=== PATIENT | female | born 1955 | race Two or more races ===

== ENCOUNTER 2019-09-05 11:00 | Outpatient (CLI) | payer OTHER ==
[2019-09-05] MEDS ORDERED: KETOROLAC TROMETHAMINE INJ 30 MG/ML VIAL IM/IV ONE (11:01)
[2019-09-05] MEDS ORDERED: LIDOCAINE HCL/PF 1% 30 ML VIAL IJ ONE (11:01)
== END 2019-09-05 23:59 | disposition home or self-care (01) ==
LOC: MSC 11:00
PROVIDERS: ATTEND Anesthesiology
DX: M54.2 Cervicalgia (principal); M46.96 Unspecified inflammatory spondylopathy, lumbar region; M51.26 Other intervertebral disc displacement, lumbar region; M47.27 Other spondylosis with radiculopathy, lumbosacral region; M96.1 Postlaminectomy syndrome, not elsewhere classified; M62.830 Muscle spasm of back; G89.4 Chronic pain syndrome; M25.9 Joint disorder, unspecified; M79.2 Neuralgia and neuritis, unspecified
CPT/HCPCS: 20553; J1885; J3490

== ENCOUNTER → 2019-10-03 | Outpatient (CLI) | payer OTHER | END | disposition home or self-care (01) | LOC: MSC 12:25 | PROVIDERS: ATTEND Anesthesiology | DX: M46.96 Unspecified inflammatory spondylopathy, lumbar region (principal); M51.26 Other intervertebral disc displacement, lumbar region; M47.27 Other spondylosis with radiculopathy, lumbosacral region; M96.1 Postlaminectomy syndrome, not elsewhere classified; M62.830 Muscle spasm of back; G89.4 Chronic pain syndrome; M25.9 Joint disorder, unspecified; M79.2 Neuralgia and neuritis, unspecified; Z79.891 Long term (current) use of opiate analgesic ==

== ENCOUNTER → 2019-10-31 | Outpatient (CLI) | payer OTHER | END | disposition home or self-care (01) | LOC: MSC 10:00 | PROVIDERS: ATTEND Anesthesiology | DX: M46.96 Unspecified inflammatory spondylopathy, lumbar region (principal); M51.26 Other intervertebral disc displacement, lumbar region; M47.27 Other spondylosis with radiculopathy, lumbosacral region; M96.1 Postlaminectomy syndrome, not elsewhere classified; M62.830 Muscle spasm of back; M25.9 Joint disorder, unspecified; M79.2 Neuralgia and neuritis, unspecified; G89.4 Chronic pain syndrome; Z79.891 Long term (current) use of opiate analgesic; Z79.1 Long term (current) use of non-steroidal anti-inflammatories (NSAID) ==

== ENCOUNTER → 2019-11-28 | Outpatient (CLI) | payer OTHER | END | disposition home or self-care (01) | LOC: MSC 09:45 | PROVIDERS: ATTEND Anesthesiology | DX: M46.96 Unspecified inflammatory spondylopathy, lumbar region (principal); M51.26 Other intervertebral disc displacement, lumbar region; M47.27 Other spondylosis with radiculopathy, lumbosacral region; M96.1 Postlaminectomy syndrome, not elsewhere classified; M62.830 Muscle spasm of back; G89.4 Chronic pain syndrome; M25.9 Joint disorder, unspecified; Z79.891 Long term (current) use of opiate analgesic; Z79.1 Long term (current) use of non-steroidal anti-inflammatories (NSAID) ==

== ENCOUNTER → 2019-12-27 | Outpatient (CLI) | payer OTHER | END | disposition home or self-care (01) | LOC: MSC 14:30 | PROVIDERS: ATTEND Anesthesiology | DX: M46.96 Unspecified inflammatory spondylopathy, lumbar region (principal); M51.26 Other intervertebral disc displacement, lumbar region; M47.27 Other spondylosis with radiculopathy, lumbosacral region; M96.1 Postlaminectomy syndrome, not elsewhere classified; M62.830 Muscle spasm of back; M25.9 Joint disorder, unspecified; G89.4 Chronic pain syndrome; M79.605 Pain in left leg; M79.604 Pain in right leg; M79.2 Neuralgia and neuritis, unspecified; Z79.891 Long term (current) use of opiate analgesic; Z79.899 Other long term (current) drug therapy ==

== ENCOUNTER 2020-01-16 10:00 | Outpatient (CLI) | payer OTHER | END 2020-01-16 23:59 | disposition home or self-care (01) | LOC: MSC 10:00 | PROVIDERS: ATTEND Anesthesiology | DX: M46.96 Unspecified inflammatory spondylopathy, lumbar region (principal); M51.26 Other intervertebral disc displacement, lumbar region; M47.27 Other spondylosis with radiculopathy, lumbosacral region; M62.830 Muscle spasm of back; M96.1 Postlaminectomy syndrome, not elsewhere classified; M54.2 Cervicalgia; G89.4 Chronic pain syndrome; M25.9 Joint disorder, unspecified; M79.2 Neuralgia and neuritis, unspecified; Z79.891 Long term (current) use of opiate analgesic; Z79.1 Long term (current) use of non-steroidal anti-inflammatories (NSAID) ==

== ENCOUNTER 2020-02-20 11:05 | Outpatient (CLI) | payer BC | END 2020-02-20 23:59 | disposition home or self-care (01) | LOC: MSC 11:05 | PROVIDERS: ATTEND Anesthesiology | DX: M46.96 Unspecified inflammatory spondylopathy, lumbar region (principal); M47.27 Other spondylosis with radiculopathy, lumbosacral region; M51.26 Other intervertebral disc displacement, lumbar region; M62.830 Muscle spasm of back; M96.1 Postlaminectomy syndrome, not elsewhere classified; G89.4 Chronic pain syndrome; M54.2 Cervicalgia; M79.605 Pain in left leg; M79.604 Pain in right leg; M25.9 Joint disorder, unspecified; M79.2 Neuralgia and neuritis, unspecified; Z79.891 Long term (current) use of opiate analgesic; Z79.1 Long term (current) use of non-steroidal anti-inflammatories (NSAID) ==

== ENCOUNTER 2020-03-19 10:40 | Outpatient (CLI) | payer BC | END 2020-03-19 23:59 | disposition home or self-care (01) | LOC: MSC 10:40 | PROVIDERS: ATTEND Anesthesiology | DX: M46.96 Unspecified inflammatory spondylopathy, lumbar region (principal); M51.26 Other intervertebral disc displacement, lumbar region; M47.27 Other spondylosis with radiculopathy, lumbosacral region; M96.1 Postlaminectomy syndrome, not elsewhere classified; M62.830 Muscle spasm of back; G89.4 Chronic pain syndrome; M54.2 Cervicalgia; M79.2 Neuralgia and neuritis, unspecified; Z79.891 Long term (current) use of opiate analgesic; Z79.1 Long term (current) use of non-steroidal anti-inflammatories (NSAID) ==

== ENCOUNTER 2020-04-09 10:40 | Outpatient (CLI) | payer BC | END 2020-04-09 23:59 | disposition home or self-care (01) | LOC: MSC 10:40 | PROVIDERS: ATTEND Anesthesiology | DX: M46.96 Unspecified inflammatory spondylopathy, lumbar region (principal); M51.26 Other intervertebral disc displacement, lumbar region; M47.27 Other spondylosis with radiculopathy, lumbosacral region; M96.1 Postlaminectomy syndrome, not elsewhere classified; M62.830 Muscle spasm of back; G89.4 Chronic pain syndrome; M25.9 Joint disorder, unspecified; M79.2 Neuralgia and neuritis, unspecified; Z79.891 Long term (current) use of opiate analgesic; Z79.1 Long term (current) use of non-steroidal anti-inflammatories (NSAID) ==

== ENCOUNTER 2020-05-14 09:40 | Outpatient (CLI) | payer BC | END 2020-05-14 23:59 | disposition home or self-care (01) | LOC: MSC 09:40 | PROVIDERS: ATTEND Anesthesiology | DX: M46.96 Unspecified inflammatory spondylopathy, lumbar region (principal); M51.26 Other intervertebral disc displacement, lumbar region; M47.27 Other spondylosis with radiculopathy, lumbosacral region; M62.830 Muscle spasm of back; M96.1 Postlaminectomy syndrome, not elsewhere classified; M54.2 Cervicalgia; G89.4 Chronic pain syndrome; M25.9 Joint disorder, unspecified; Z79.891 Long term (current) use of opiate analgesic; Z79.1 Long term (current) use of non-steroidal anti-inflammatories (NSAID) ==

== ENCOUNTER → 2022-01-20 | Outpatient (CLI) | payer MEDICARE, BC | END | disposition home or self-care (01) | LOC: MSC 10:00 | PROVIDERS: ATTEND Anesthesiology | DX: G89.4 Chronic pain syndrome (principal); M46.96 Unspecified inflammatory spondylopathy, lumbar region; M51.26 Other intervertebral disc displacement, lumbar region; M47.27 Other spondylosis with radiculopathy, lumbosacral region; M96.1 Postlaminectomy syndrome, not elsewhere classified; M62.830 Muscle spasm of back; M25.9 Joint disorder, unspecified; M79.2 Neuralgia and neuritis, unspecified; M79.605 Pain in left leg; M79.641 Pain in right hand; Z79.891 Long term (current) use of opiate analgesic; Z79.1 Long term (current) use of non-steroidal anti-inflammatories (NSAID); Z79.899 Other long term (current) drug therapy ==

== ENCOUNTER → 2022-03-10 | Outpatient (CLI) | payer MEDICARE, BC | END | disposition home or self-care (01) | LOC: MSC 10:30 | PROVIDERS: ATTEND Anesthesiology | DX: G89.4 Chronic pain syndrome (principal); M46.96 Unspecified inflammatory spondylopathy, lumbar region; M51.26 Other intervertebral disc displacement, lumbar region; M47.27 Other spondylosis with radiculopathy, lumbosacral region; M96.1 Postlaminectomy syndrome, not elsewhere classified; M62.830 Muscle spasm of back; M54.2 Cervicalgia; M25.9 Joint disorder, unspecified; M79.2 Neuralgia and neuritis, unspecified; M79.605 Pain in left leg; M79.641 Pain in right hand; Z76.0 Encounter for issue of repeat prescription; Z79.891 Long term (current) use of opiate analgesic; Z79.1 Long term (current) use of non-steroidal anti-inflammatories (NSAID); Z98.890 Other specified postprocedural states ==

== ENCOUNTER 2022-04-07 10:08 | Outpatient (CLI) | payer MEDICARE, BC | END 2022-04-07 23:59 | disposition home or self-care (01) | LOC: MSC 10:08 | PROVIDERS: ATTEND Anesthesiology | DX: G89.4 Chronic pain syndrome (principal); M46.96 Unspecified inflammatory spondylopathy, lumbar region; M51.26 Other intervertebral disc displacement, lumbar region; M47.27 Other spondylosis with radiculopathy, lumbosacral region; M96.1 Postlaminectomy syndrome, not elsewhere classified; M62.830 Muscle spasm of back; M25.9 Joint disorder, unspecified; M79.2 Neuralgia and neuritis, unspecified; M79.605 Pain in left leg; M79.641 Pain in right hand; Z79.891 Long term (current) use of opiate analgesic; Z79.1 Long term (current) use of non-steroidal anti-inflammatories (NSAID); Z76.0 Encounter for issue of repeat prescription ==

== ENCOUNTER → 2022-04-21 | Outpatient (CLI) | payer MEDICARE, BC | END | disposition home or self-care (01) | LOC: MSC 11:15 | PROVIDERS: ATTEND Anesthesiology | DX: M46.96 Unspecified inflammatory spondylopathy, lumbar region (principal); M51.26 Other intervertebral disc displacement, lumbar region; M47.27 Other spondylosis with radiculopathy, lumbosacral region; M96.1 Postlaminectomy syndrome, not elsewhere classified; M62.830 Muscle spasm of back; G89.4 Chronic pain syndrome; M25.9 Joint disorder, unspecified; M79.2 Neuralgia and neuritis, unspecified; M79.605 Pain in left leg; M79.641 Pain in right hand; Z79.891 Long term (current) use of opiate analgesic; Z79.1 Long term (current) use of non-steroidal anti-inflammatories (NSAID) ==

== ENCOUNTER 2022-06-02 09:55 | Outpatient (CLI) | payer MEDICARE, BC | END 2022-06-02 23:59 | disposition home or self-care (01) | LOC: MSC 09:55 | PROVIDERS: ATTEND Anesthesiology | DX: G89.4 Chronic pain syndrome (principal); M46.96 Unspecified inflammatory spondylopathy, lumbar region; M51.26 Other intervertebral disc displacement, lumbar region; M47.27 Other spondylosis with radiculopathy, lumbosacral region; M96.1 Postlaminectomy syndrome, not elsewhere classified; M62.830 Muscle spasm of back; M54.2 Cervicalgia; M25.9 Joint disorder, unspecified; M79.2 Neuralgia and neuritis, unspecified; M79.605 Pain in left leg; M79.641 Pain in right hand; Z79.891 Long term (current) use of opiate analgesic; Z79.1 Long term (current) use of non-steroidal anti-inflammatories (NSAID) ==

== ENCOUNTER → 2022-06-30 | Outpatient (CLI) | payer MEDICARE, BC | END | disposition home or self-care (01) | LOC: MSC 09:30 | PROVIDERS: ATTEND Anesthesiology | DX: G89.4 Chronic pain syndrome (principal); M46.96 Unspecified inflammatory spondylopathy, lumbar region; M51.26 Other intervertebral disc displacement, lumbar region; M47.27 Other spondylosis with radiculopathy, lumbosacral region; M96.1 Postlaminectomy syndrome, not elsewhere classified; M62.830 Muscle spasm of back; M54.2 Cervicalgia; M79.2 Neuralgia and neuritis, unspecified; M25.9 Joint disorder, unspecified; M25.559 Pain in unspecified hip; M79.605 Pain in left leg; M79.641 Pain in right hand; Z79.891 Long term (current) use of opiate analgesic; Z79.1 Long term (current) use of non-steroidal anti-inflammatories (NSAID) ==

== ENCOUNTER → 2022-07-21 | Outpatient (CLI) | payer MEDICARE | END | disposition home or self-care (01) | LOC: MSC 09:30 | PROVIDERS: ATTEND Anesthesiology | DX: G89.4 Chronic pain syndrome (principal); M46.96 Unspecified inflammatory spondylopathy, lumbar region; M51.26 Other intervertebral disc displacement, lumbar region; M47.27 Other spondylosis with radiculopathy, lumbosacral region; M96.1 Postlaminectomy syndrome, not elsewhere classified; M62.830 Muscle spasm of back; M54.2 Cervicalgia; M79.2 Neuralgia and neuritis, unspecified; M25.9 Joint disorder, unspecified; M79.605 Pain in left leg; M79.641 Pain in right hand; Z76.0 Encounter for issue of repeat prescription; Z79.891 Long term (current) use of opiate analgesic; Z79.1 Long term (current) use of non-steroidal anti-inflammatories (NSAID) ==

== ENCOUNTER 2022-08-18 09:55 | Outpatient (CLI) | payer MEDICARE | END 2022-08-18 23:59 | disposition home or self-care (01) | LOC: MSC 09:55 | PROVIDERS: ATTEND Anesthesiology | DX: G89.4 Chronic pain syndrome (principal); M46.96 Unspecified inflammatory spondylopathy, lumbar region; M51.26 Other intervertebral disc displacement, lumbar region; M47.27 Other spondylosis with radiculopathy, lumbosacral region; M96.1 Postlaminectomy syndrome, not elsewhere classified; M62.830 Muscle spasm of back; M79.2 Neuralgia and neuritis, unspecified; M25.9 Joint disorder, unspecified; M79.605 Pain in left leg; M79.641 Pain in right hand; Z76.0 Encounter for issue of repeat prescription; Z79.891 Long term (current) use of opiate analgesic; Z79.1 Long term (current) use of non-steroidal anti-inflammatories (NSAID); M54.2 Cervicalgia ==

== ENCOUNTER 2022-09-22 10:20 | Outpatient (CLI) | payer MEDICARE | END 2022-09-22 23:59 | disposition home or self-care (01) | LOC: MSC 10:20 | PROVIDERS: ATTEND Anesthesiology | DX: G89.4 Chronic pain syndrome (principal); M47.27 Other spondylosis with radiculopathy, lumbosacral region; M46.96 Unspecified inflammatory spondylopathy, lumbar region; M51.26 Other intervertebral disc displacement, lumbar region; M96.1 Postlaminectomy syndrome, not elsewhere classified; M62.830 Muscle spasm of back; M79.2 Neuralgia and neuritis, unspecified; M25.9 Joint disorder, unspecified; M79.605 Pain in left leg; M79.641 Pain in right hand; Z79.891 Long term (current) use of opiate analgesic; Z79.1 Long term (current) use of non-steroidal anti-inflammatories (NSAID) ==

== ENCOUNTER 2022-10-13 09:45 | Outpatient (CLI) | payer MEDICARE | END 2022-10-13 23:59 | disposition home or self-care (01) | LOC: MSC 09:45 | PROVIDERS: ATTEND Anesthesiology | DX: G89.4 Chronic pain syndrome (principal); M46.96 Unspecified inflammatory spondylopathy, lumbar region; M51.26 Other intervertebral disc displacement, lumbar region; M47.27 Other spondylosis with radiculopathy, lumbosacral region; M43.26 Fusion of spine, lumbar region; M54.2 Cervicalgia; M96.1 Postlaminectomy syndrome, not elsewhere classified; M62.830 Muscle spasm of back; Z98.890 Other specified postprocedural states; M79.2 Neuralgia and neuritis, unspecified; M79.605 Pain in left leg; M79.641 Pain in right hand; Z76.0 Encounter for issue of repeat prescription; Z79.891 Long term (current) use of opiate analgesic ==

== ENCOUNTER 2025-07-16 10:05 | Inpatient (IN) | payer MEDICARE, BC ==
[~2025-07-16] VITALS: Ht 167.6 cm; Wt 72.6 kg
[2025-07-16] MEDS ORDERED: VANCOMYCIN 1 GM VIAL ONE ×4 (10:15→13:37)
[2025-07-16] MEDS ORDERED: CEFAZOLIN 0 GM ONE (10:15)
[2025-07-16] MEDS ORDERED: POLYMYXIN B SULFATE 0 UNITS ONE (10:15)
[2025-07-16] MEDS ORDERED: BUPIVACAINE 0.5 % PF 150 MG/30 ML VIAL ONE (10:15)
[2025-07-16] MEDS ORDERED: LIDOCAINE 0.5%-EPI 1:200,000 50 ML VIAL ONE ×2 (10:15→14:33)
[2025-07-16] MEDS ORDERED: FENTANYL PF 100MCG/2ML AMPUL ONE ×3 (10:32→11:39)
[2025-07-16] MEDS ORDERED: ROCURONIUM BROMIDE 50 MG/5 ML ONE ×3 (10:32→11:39)
[2025-07-16] MEDS ORDERED: SEVOFLURANE 250 ML BOTTLE IH ONE (12:13)
[2025-07-16] MEDS ORDERED: MORPHINE SULFATE INJ 10 MG/ML DISP.SYRIN IV PRN (13:00)
[2025-07-16] MEDS ORDERED: ONDANSETRON HCL/PF 4 MG/2 ML VIAL IVP PRN ×2 (13:00→18:00)
[2025-07-16] MEDS ORDERED: METOCLOPRAMIDE HCL 10 MG/2 ML VIAL IV PRN (13:00)
[2025-07-16] MEDS ORDERED: HYDROMORPHONE 1 MG/1 ML DISP.SYRIN IV PRN (13:00)
[2025-07-16] MEDS ORDERED: BACITRACIN ZINC OINT (15 GM) 15 GM TUBE TP ONE (15:21)
[2025-07-16] MEDS ORDERED: KETOROLAC TROMETHAMINE INJ 30 MG/ML VIAL ONE (16:11)
[2025-07-16] MEDS ORDERED: HYDROMORPHONE INJ 2 MG/ML DISP.SYRIN ONE (16:31)
[2025-07-16] MEDS: HYDROMORPHONE 1 MG/1 ML DISP.SYRIN IV PRN (17:47)
[2025-07-16] MEDS ORDERED: DOCUSATE SODIUM 250 MG CAPSULE PO PRN (18:00)
[2025-07-16] MEDS ORDERED: SENNOSIDES 8.6 MG TABLET PO PRN (18:00)
[2025-07-16] MEDS ORDERED: CYCLOBENZAPRINE 10 MG TABLET PO PRN (18:00)
[2025-07-16] MEDS ORDERED: BISACODYL SUPP (10 MG) 10 MG/SUPP.RECT SUPP.RECT RC PRN (18:00)
[2025-07-16] MEDS: IV NS W/20MEQ KCL 1L IV SCH (18:09)
[2025-07-16] MEDS ORDERED: MULT-594 PO (18:46)
[2025-07-16] MEDS ORDERED: TAMS-12 PO (18:46)
[2025-07-16] MEDS ORDERED: HYDR2TAB4 PO (18:46)
[2025-07-16] MEDS ORDERED: ATOR40TA PO (18:46)
[2025-07-16] MEDS ORDERED: POLY17PO4 PO (18:46)
[2025-07-16] MEDS ORDERED: LIDO30AD10 TP (18:46)
[2025-07-16] MEDS ORDERED: ACET325T53 PO (18:46)
[2025-07-16] MEDS ORDERED: GABA800T11 PO (18:46)
[2025-07-16] MEDS ORDERED: MAGN400O6 PO (18:46)
[2025-07-16] MEDS ORDERED: THIA100T88 PO (18:46)
[2025-07-16] MEDS ORDERED: TEMA30CA PO (18:46)
[2025-07-16] MEDS ORDERED: BISA5TAB10 PO (18:46)
[2025-07-16] MEDS ORDERED: SENN-261 PO (18:46)
[2025-07-16] MEDS ORDERED: BISA10SU12 RC (18:46)
[2025-07-16] MEDS ORDERED: ONDA4TAB11 PO (18:46)
[2025-07-16] MEDS ORDERED: NA P133E RC (18:46)
[2025-07-16] MEDS ORDERED: AMLO-212 PO (18:46)
[2025-07-16] MEDS ORDERED: LOSA25TA27 PO (18:46)
[2025-07-16] MEDS ORDERED: PANT40TA49 PO (18:46)
[2025-07-16] MEDS ORDERED: HYDR-3980 PO (18:46)
[2025-07-16 20:00] VITALS: BP 125/68; TEMP 97.9; O2SAT 99
[2025-07-16] MEDS: POLYVINYL ALCOHOL 15 ML BOTTLE EACHEYE PRN (20:00)
[2025-07-16 22:00] VITALS: BP 125/70; TEMP 98; O2SAT 99
[2025-07-16] MEDS: TEMAZEPAM 15 MG CAPSULE PO PRN (23:00)
[2025-07-16 23:01] VITALS: BP 116/68; TEMP 97.8; O2SAT 98
[2025-07-17 00:30] VITALS: BP 118/75; TEMP 97.8; O2SAT 99
[2025-07-17 07:26] LABS: PLATELET COUNT (AUTO) 426 K/uL (150-450); RED BLOOD CELL COUNT(AUTO) 2.47 MIL/uL (4.0-5.2); RED CELL DISTRIBUTION WIDTH 15.8 % (11.5-15.0); WHITE BLOOD COUNT (AUTO) 9.9 K/uL (4.3-11.0)
[2025-07-17 07:40] LABS: CALCIUM, SERUM 7.1 mg/dL (8.5-10.1); CREATININE 0.7 mg/dL (0.6-1.3); SODIUM SERUM 138.0 mmol/L (136-145); UREA NITROGEN, BLOOD 7.0 mg/dL (7-18)
[2025-07-17 08:00] VITALS: BP 111/58; TEMP 98.6; O2SAT 98
[2025-07-17] MEDS ORDERED: DOSING PER PHARMACY-ZOSYN IV 1 EA EA XX PRN (10:00)
[2025-07-17] MEDS ORDERED: DOSING PER PHARMACY-VANCOMYCIN IV XX PRN (10:00)
[2025-07-17] MEDS ORDERED: HYDROCODONE/APAP 10/325MG TABLET PO PRN (10:30)
[2025-07-17] MEDS: VANCOMYCIN 1 GM in IV D5W 250ml IV SCH (12:09)
[2025-07-17] MEDS: MEROPENEM 1 G in IV NS 0.9% 100 ML IV SCH (13:07)
[2025-07-17 16:00] VITALS: BP 127/79; TEMP 98.6; O2SAT 99
[2025-07-17] MEDS: AMLODIPINE BESYLATE 5 MG TABLET PO SCH (17:00)
[2025-07-17] MEDS ORDERED: NA PHOS,M-B/NA PHOS,DI-BA 1 EA ENEMA RC PRN (17:00)
[2025-07-17] MEDS ORDERED: ONDANSETRON 4 MG TAB.RAPDIS PO PRN (17:00)
[2025-07-17] MEDS: GABAPENTIN 400 MG CAPSULE PO SCH (17:00)
[2025-07-17] MEDS: BISACODYL (5 MG) 5 MG TABLET.DR PO SCH (17:00)
[2025-07-17] MEDS ORDERED: MAGNESIUM HYDROXIDE 30 ML UDC PO PRN (17:00)
[2025-07-17] MEDS: LOSARTAN POTASSIUM 25 MG TABLET PO SCH (17:00)
[2025-07-17] MEDS: TAMSULOSIN 0.4 MG CAP.SR.24H PO SCH (17:00)
[2025-07-17] MEDS ORDERED: ACETAMINOPHEN 325 MG TABLET PO PRN (17:00)
[2025-07-17] MEDS: CEFTRIAXONE 2 G in IV D5W 100 ML IV SCH (18:32)
[2025-07-17 19:37] VITALS: BP 143/60; TEMP 98.8; O2SAT 100
[2025-07-17] MEDS: ATORVASTATIN 40 MG TABLET PO SCH (21:08)
[2025-07-17] MEDS: TEMAZEPAM 15 MG CAPSULE PO PRN (21:37)
[2025-07-17] MEDS ORDERED: SENNOSIDES 8.6 MG TABLET PO SCH (22:00)
[2025-07-18 07:00] VITALS: BP 130/76; TEMP 98.4; O2SAT 97
[2025-07-18 07:46] LABS: PLATELET COUNT (AUTO) 374 K/uL (150-450); RED BLOOD CELL COUNT(AUTO) 2.42 MIL/uL (4.0-5.2); RED CELL DISTRIBUTION WIDTH 15.7 % (11.5-15.0); WHITE BLOOD COUNT (AUTO) 8.9 K/uL (4.3-11.0)
[2025-07-18 08:32] LABS: CALCIUM, SERUM 7.0 mg/dL (8.5-10.1); CREATININE 0.5 mg/dL (0.6-1.3); PHOSPHORUS 2.4 mg/dL (2.5-4.9); SODIUM SERUM 138.0 mmol/L (136-145); UREA NITROGEN, BLOOD 3.0 mg/dL (7-18)
[2025-07-18] MEDS: LIDOCAINE 5% (PATCH) 1 EA PATCH TP SCH (09:00)
[2025-07-18] MEDS: THIAMINE HCL 100 MG TABLET PO SCH (09:07)
[2025-07-18] MEDS: MULTIVITAMINS,THERAGRAN 1 UDTAB TABLET PO SCH (09:07)
[2025-07-18] MEDS: POLYETHYLENE GLYCOL 3350 17 GM POWD.PACK PO SCH (09:07)
[2025-07-18] MEDS: HYDROMORPHONE INJ 2 MG/ML DISP.SYRIN IV ONE (14:24)
[2025-07-18 16:00] VITALS: BP 103/56; TEMP 97.3; O2SAT 98
[2025-07-18] MEDS: CARISOPRODOL 350 MG TABLET PO SCH (17:00)
[2025-07-18] MEDS: NEUTRA PHOS 1 POWD.PACKET PO ONE (17:44)
[2025-07-18 20:00] VITALS: BP 100/61; TEMP 98.1; O2SAT 97
[2025-07-18] MEDS: VANCOMYCIN HCL 1.25 GM in IV D5W 250 ML IV SCH (23:50)
[2025-07-19 06:24] VITALS: BP 121/60; TEMP 98.2; O2SAT 92
[2025-07-19 07:22] LABS: PLATELET COUNT (AUTO) 365 K/uL (150-450); RED BLOOD CELL COUNT(AUTO) 2.47 MIL/uL (4.0-5.2); RED CELL DISTRIBUTION WIDTH 15.5 % (11.5-15.0); WHITE BLOOD COUNT (AUTO) 5.9 K/uL (4.3-11.0)
[2025-07-19 07:33] LABS: CALCIUM, SERUM 7.0 mg/dL (8.5-10.1); CREATININE 0.7 mg/dL (0.6-1.3); PHOSPHORUS 2.4 mg/dL (2.5-4.9); SODIUM SERUM 142.0 mmol/L (136-145); UREA NITROGEN, BLOOD 7.0 mg/dL (7-18)
[2025-07-19 08:29] VITALS: BP 116/63; TEMP 98.2; O2SAT 98
[2025-07-19 16:00] VITALS: BP 113/60; TEMP 97.9; O2SAT 99
[2025-07-19] MEDS: K PHOS NEUTRAL 250 MG TABLET PO ONE (16:40)
[2025-07-19 20:00] VITALS: BP 108/57; TEMP 97.9; O2SAT 98
[2025-07-20] VITALS (10 sets, daily range): BP systolic 90–134; BP diastolic 60–90; TEMP 97.7–98.7; O2SAT 95–98
[2025-07-20 07:32] LABS: CALCIUM, SERUM 7.5 mg/dL (8.5-10.1); CREATININE 0.7 mg/dL (0.6-1.3); SODIUM SERUM 141.0 mmol/L (136-145); UREA NITROGEN, BLOOD 7.0 mg/dL (7-18)
[2025-07-21 07:30] VITALS: BP 146/62; TEMP 97.9; O2SAT 99
[2025-07-21 07:50] LABS: PLATELET COUNT (AUTO) 366 K/uL (150-450); RED BLOOD CELL COUNT(AUTO) 2.98 MIL/uL (4.0-5.2); RED CELL DISTRIBUTION WIDTH 15.7 % (11.5-15.0); WHITE BLOOD COUNT (AUTO) 6.0 K/uL (4.3-11.0)
[2025-07-21 07:59] LABS: CALCIUM, SERUM 8.2 mg/dL (8.5-10.1); CREATININE 0.7 mg/dL (0.6-1.3); PHOSPHORUS 3.6 mg/dL (2.5-4.9); SODIUM SERUM 139.0 mmol/L (136-145); UREA NITROGEN, BLOOD 7.0 mg/dL (7-18)
[2025-07-21 08:24] VITALS: BP 146/62; TEMP 97.9; O2SAT 99
[2025-07-21 14:11] VITALS: BP 133/81; TEMP 97.9; O2SAT 97
[2025-07-21 16:00] VITALS: BP 144/78; TEMP 97.5; O2SAT 96
[2025-07-21 16:17] VITALS: BP 144/78; TEMP 97.5; O2SAT 96
[2025-07-21 20:00] VITALS: BP 129/89; TEMP 97.8; O2SAT 97
[2025-07-22] MEDS: BISACODYL SUPP (10 MG) 10 MG/SUPP.RECT SUPP.RECT RC PRN (00:54)
[2025-07-22 06:49] LABS: PLATELET COUNT (AUTO) 358 K/uL (150-450); RED BLOOD CELL COUNT(AUTO) 2.83 MIL/uL (4.0-5.2); RED CELL DISTRIBUTION WIDTH 16.2 % (11.5-15.0); WHITE BLOOD COUNT (AUTO) 6.7 K/uL (4.3-11.0)
[2025-07-22 07:14] LABS: CALCIUM, SERUM 8.0 mg/dL (8.5-10.1); CREATININE 0.7 mg/dL (0.6-1.3); PHOSPHORUS 3.7 mg/dL (2.5-4.9); SODIUM SERUM 138.0 mmol/L (136-145); UREA NITROGEN, BLOOD 7.0 mg/dL (7-18)
[2025-07-22 08:00] VITALS: BP 108/82; TEMP 98.2; O2SAT 98
[2025-07-22 16:00] VITALS: BP 134/69; TEMP 98.2; O2SAT 96
[2025-07-22 20:00] VITALS: BP 117/70; TEMP 98.1; O2SAT 94; O2SAT 99
[2025-07-23 06:18] LABS: PLATELET COUNT (AUTO) 320 K/uL (150-450); RED BLOOD CELL COUNT(AUTO) 2.90 MIL/uL (4.0-5.2); RED CELL DISTRIBUTION WIDTH 16.2 % (11.5-15.0); WHITE BLOOD COUNT (AUTO) 5.8 K/uL (4.3-11.0)
[2025-07-23 06:36] LABS: CALCIUM, SERUM 8.4 mg/dL (8.5-10.1); CREATININE 0.8 mg/dL (0.6-1.3); PHOSPHORUS 5.2 mg/dL (2.5-4.9); SODIUM SERUM 138.0 mmol/L (136-145); UREA NITROGEN, BLOOD 9.0 mg/dL (7-18)
[2025-07-23 07:30] VITALS: BP 127/77; TEMP 97.9; O2SAT 96
[2025-07-23] MEDS: VANCOMYCIN 750 MG in IV D5W 250 ML IV SCH (15:12)
[2025-07-23 16:05] VITALS: BP 125/65; TEMP 97.7; O2SAT 98
[2025-07-23 20:00] VITALS: BP 117/86; TEMP 97.7; O2SAT 94
[2025-07-24 06:28] LABS: CALCIUM, SERUM 8.4 mg/dL (8.5-10.1); CREATININE 0.8 mg/dL (0.6-1.3); SODIUM SERUM 140.0 mmol/L (136-145); UREA NITROGEN, BLOOD 9.0 mg/dL (7-18)
[2025-07-24 08:00] VITALS: BP 134/65; TEMP 98.2; O2SAT 98
[2025-07-24] MEDS ORDERED: VANC750F2 IV (09:07)
[2025-07-24] MEDS ORDERED: CEFT2FRO2 IV (09:07)
[2025-07-24 09:10] VITALS: BP 146/85
== END 2025-07-24 12:48 | DRG 856 ==
LOC: MED 10:05
PROVIDERS: ADMIT Student in an Organized Health Care Education/Training Program; ATTEND Internal Medicine
PROC: 01NB0ZZ Release Lumbar Nerve, Open Approach (ICD-10-PCS; 2025-07-16)
PROC: 0KBG0ZZ Excision of Left Trunk Muscle, Open Approach (ICD-10-PCS; 2025-07-16)
PROC: 0QP104Z Removal of Internal Fixation Device from Sacrum, Open Approach (ICD-10-PCS; 2025-07-16)
PROC: 0JQ70ZZ Repair Back Subcutaneous Tissue and Fascia, Open Approach (ICD-10-PCS; 2025-07-16)
PROC: 0KBF0ZZ Excision of Right Trunk Muscle, Open Approach (ICD-10-PCS; 2025-07-16)
PROC: 009U0ZZ Drainage of Spinal Canal, Open Approach (ICD-10-PCS; principal; 2025-07-16 11:00)
PROC: 30233N1 Transfusion of Nonautologous Red Blood Cells into Peripheral Vein, Percutaneous Approach (ICD-10-PCS; 2025-07-19)
DX: T81.49XA Infection following a procedure, other surgical site, initial encounter (principal); G06.2 Extradural and subdural abscess, unspecified; T84.226A Displacement of internal fixation device of vertebrae, initial encounter; G95.20 Unspecified cord compression; L02.212 Cutaneous abscess of back [any part, except buttock and flank]; M96.840 Postprocedural hematoma of a musculoskeletal structure following a musculoskeletal system procedure; B96.89 Other specified bacterial agents as the cause of diseases classified elsewhere; S31.000A Unspecified open wound of lower back and pelvis without penetration into retroperitoneum, initial encounter; X58.XXXA Exposure to other specified factors, initial encounter; Y92.009 Unspecified place in unspecified non-institutional (private) residence as the place of occurrence of the external cause; G89.4 Chronic pain syndrome; Y79.8 Miscellaneous orthopedic devices associated with adverse incidents, not elsewhere classified; Z79.899 Other long term (current) drug therapy; I10 Essential (primary) hypertension; G47.00 Insomnia, unspecified; D64.9 Anemia, unspecified; M81.0 Age-related osteoporosis without current pathological fracture; M41.9 Scoliosis, unspecified; Z86.61 Personal history of infections of the central nervous system; Z88.0 Allergy status to penicillin; Z88.1 Allergy status to other antibiotic agents; Z88.2 Allergy status to sulfonamides; Z98.1 Arthrodesis status; Z88.8 Allergy status to other drugs, medicaments and biological substances; M85.80 Other specified disorders of bone density and structure, unspecified site
CPT/HCPCS: 36415; 72100-TC; 80048-TC; 80202-TC; 83735-TC; 84100-TC; 85025-TC; 85652-TC; 86140-TC; 86850-TC; 87070-TC; 87075-TC; 87102-TC; 88300-TC; 88305-TC; 88311-TC; 88312-TC; 97110-TC; 97116-TC; 97530-TC; 97535-TC; A4217; A4223; A4338; A6253; A6254; A6403; G0378; J0330; J0690; J0696; J1100; J1171; J1885; J2185; J2405; J2704; J3010; J3373; J3374; J3480; J3490; J7030; J7050; J7060; P9016